=== PATIENT | male | born 1955 | race Caucasian/White ===

== ENCOUNTER 2020-12-27 23:15 | Emergency (ER) | payer OTHER, SELFPAY ==
[2020-12-27 23:18] VITALS: BP 148/89; PULSE 82; RESP 18; TEMP 36.6; O2SAT 97; BMI 28.0
--- NOTE | 2020-12-27 23:51 | ED.SKABFB ---
HPI - Skin/Abscess/Foreign Bdy General Chief complaint: Skin/Abscess/Foreign Body Stated complaint: ?Tick bite Time Seen by Provider: 12/27/20 23:38 Source: patient Mode of arrival: ambulatory Limitations: no limitations History of Present Illness HPI narrative: Patient at [place] noticed a tick on his left thigh likely stayed there for less than 24 hours with slight swelling patient removed the tick which was not engorged. Patient still wants to be treated for prophylactically for Lyme disease. No rash no systemic complaints Related Data Allergies Allergy/AdvReac Type Severity Reaction Status Date / Time prednisone AdvReac Agitated Verified 12/27/20 23:35 Review of Systems Review of Systems: Yes all other systems are reviewed and are negative [facility] Social History Social History Advance Directives: No Physical Exam Vital Signs: Vital Signs: Last Vital Signs Temp 98 F 12/27/20 23:18 Pulse 82 12/27/20 23:18 Resp 18 12/27/20 23:18 BP 148/89 H 12/27/20 23:18 Pulse Ox 97 12/27/20 23:18 Body Mass Index 28.0 Const: General: comfortable and no acute distress Extrem: Upper/lower leg/hip images: 1. Site of tick bite with slight erythema no bull's eye sign MDM - Skin/Abscess/Foreign Bdy MDM Narrative Medical decision making narrative: Patient was given 200 mg of doxycycline prophylactically or Lyme disease per patient's request Discharge Plan Discharge Clinical Impression: Tick bite Qualifiers: Encounter type: initial encounter Site of tick bite: thigh Laterality: left Qualified Code(s): S70.362A - Insect bite (nonvenomous), left thigh, initial encounter Patient Disposition: Home, Self-Care Instructions: Tick Bite (ED) Additional Instructions: Care as advised Follow with PCP if you notice any rash/joint pain
== END 2020-12-28 00:08 | disposition home or self-care (01) ==
PROVIDERS: Emergency Provider Internal Medicine; PCP Internal Medicine
DX: S70.362A Insect bite (nonvenomous), left thigh, initial encounter (principal); W57.XXXA Bitten or stung by nonvenomous insect and other nonvenomous arthropods, initial encounter; Y93.9 Activity, unspecified; Y92.9 Unspecified place or not applicable; Y99.9 Unspecified external cause status
CPT/HCPCS: 99283

== ENCOUNTER 2021-05-21 22:19 | Emergency (ER) | payer OTHER, SELFPAY ==
--- NOTE | ~2021-05-21 | CT_ITS ---
EXAMINATION: CT HEAD WITHOUT CONTRAST CT FACIAL BONES WITHOUT CONTRAST CT CERVICAL SPINE WITHOUT CONTRAST CLINICAL INFORMATION: Fall. Right-sided facial injury. Headache. Hemorrhage. Right orbital and facial trauma. Cervical fracture. COMPARISON: None available. TECHNIQUE: Imaging was performed from the skull base to vertex without intravenous administration of contrast. In addition, helical noncontrast CT imaging was acquired through the cervical spine and facial bones and source images were reviewed along with axial reconstructions and sagittal and coronal MPRs. This CT examination was performed using dose optimization techniques as appropriate, variously including the following: *Automated exposure control. *Adjustment of mA and/or kV according to patient size (this includes techniques or standardized protocols for targeted exams where dose is matched to indication/reason for exam; i.e. extremities or head). *Use of iterative reconstruction technique. DLP: 1915 mGy-cm FINDINGS: Head: There is no evidence of acute intracranial hemorrhage or edematous territorial infarction. A few foci of hypoattenuation in the periventricular and deep white matter are consistent with mild microangiopathy. Field-white matter differentiation is preserved. The ventricles are normal in size and configuration. No evidence for obstructive hydrocephalus. No abnormal mass effect or midline shift. No extra-axial fluid collections. Calcific atherosclerotic disease of the intracranial internal carotid and vertebral arteries. No hyperdense vessel sign. Moderate soft tissue hematoma along the right aspect of the frontal bone, measuring up to 1 cm in depth. No associated osseous abnormalities. The mastoid air cells and middle ear cavities are clear. Maxillofacial Bones: No evidence of maxillofacial bone fractures. The zygomatic arches remain intact. Minimal deformity of the left nasal bone without overt displacement. Mild leftward nasal septal deviation. No evidence of mandibular or maxillary fracture. The mandibular condyles remain well-seated in their respective temporal articular grooves. Moderate right periorbital edema/hematoma. Normal appearance of the intraconal and extraconal fat. Bilateral lens extractions. No evidence of traumatic injury to the extraocular musculature or globes. Mild mucosal thickening of the paranasal sinuses. Mucous retention cyst within the right maxillary sinus. No layering fluid collections. Periapical lucency associated with the mandibular right 1st molar. Cervical Spine: The atlantooccipital and atlantoaxial articulations remain well aligned. Straightening of the normal cervical lordosis. Otherwise, there is anatomic alignment of the vertebral bodies and posterior elements. No evidence of acute fracture or subluxation. The vertebral body heights are maintained. Advanced degenerative disc disease at C5-C6. Moderate degenerative disc disease at C3-C4, C4-C5, C6-C7, and C7-T1. Associated disc-osteophyte complex formation. Facet and uncovertebral joint arthropathy leads to osseous encroachment on the neural foramina from C3-T3. There is no prevertebral soft tissue swelling. The thyroid gland and remaining cervical soft tissues are normal in appearance. Left pectoral pacemaker. Linear scarring/atelectasis in the right lung apex. CT/CT cervical spine wo con IMPRESSION: 1. No evidence of acute intracranial hemorrhage or edematous territorial infarction. Mild underlying microangiopathy. 2. No evidence of acute fracture or traumatic subluxation of the cervical spine. Moderate multilevel degenerative spondyloarthropathy of the cervical spine. 3. No acute fracture of the maxillofacial bones. 4. Moderate right frontal scalp/periorbital hematoma. No associated osseous abnormalities.
[2021-05-21 22:22] VITALS: BP 131/83; PULSE 95; RESP 18; TEMP 36.7; O2SAT 95; BMI 29.2
--- NOTE | 2021-05-21 22:58 | ED_ITS ---
HPI - General Adult General Chief complaint: General Medical Stated complaint: fall Time Seen by Provider: 05/21/21 22:44 Source: patient Mode of arrival: ambulatory Limitations: no limitations History of Present Illness HPI narrative: 66-year-old male who presents emergency department for evaluation of head and fa cial injury secondary to a fall. Patient states that he fell this morning at 01:30 hours. He states he was getting out of his truck, slipped and fell. He states that his clean the wounds at home and bend him up. He is concerned that his right eye in the right side of his face is more swollen than it was after the injury so he came to the emergency department to be seen. The patient states that he did not lose consciousness. He denies headache, nausea or vomiting. He states that his right upper and lower eyelids are swollen on her leaking fluid but he has good vision with no pain in his eye. He has not had any double vision. He is complaining of neck pain which he states is a mild to moderate soreness throughout his entire neck, the pain is intermittent it is worse with movement. He does not know when his last tetanus shot was given. MD complaint: Fall with head, neck and facial injuries Onset (ago): hour(s) (Twenty-three) Location: head, face and neck Radiation: non-radiation Severity: moderate Severity scale (1-10): 5 Quality: aching Pain Consistency: constant Relieving factors: none Exacerbating factors: movement Associated symptoms: denies other symptoms Treatments prior to arrival: none Related Data Allergies Allergy/AdvReac Type Severity Reaction Status Date / Time prednisone AdvReac Agitated Verified 05/21/21 22:31 Review of Systems Review of Systems: Yes all other systems are reviewed and are negative [facility] Past Medical History [facility] Narrative: Past medical history: Hypertension, myocardial infarction. Past surgical history CABG x3 July 2020, pacemaker. Social history: He is . He lives with his . He denies tobacco use but he was a former cigarette smoker. He drinks alcohol once a week, he drinks 4-5 years at a time. Denies drug use. Medical History Hypertension Surgical History S/P triple vessel bypass Social History Social History Advance Directives: No Advance Directives Information Provided: Yes Physical Exam ED Vital Signs: Vital Signs - 24 hr 05/21/21 22:22 Temperature 98.1 F Pulse Rate 95 Respiratory Rate 18 Blood Pressure 131/83 Pulse Oximetry 95 BMI result Body Mass Index 29.2 Const General: cooperative and no acute distress Orientation/consciousness: oriented to person and oriented to place Limitations: no limitations HENMT Other: The patient has abrasions to his right forehead with laceration to his eyebrow and to his lower orbit, there is soft tissue swelling of his upper and lower eyelid, there is tenderness with palpation of the lower orbital rim, there is no scalp hematoma noted Ears: external ears normal General nose exam: Normal external nose present Face and sinus: Yes normal facial exam Mouth: Normal oral and palatal mucosa present Throat: Yes posterior oropharynx normal Eyes Other: Abrasions and lacerations as discussed above Pupils: Equal, round and reactive pupils present EOM: EOMs intact bilaterally Neck Other: Tender trapezius muscles bilaterally and cervical spine diffusely Neck: Yes normal visual inspection, Yes no lymphadenopathy, Yes trachea midline and Yes supple Chest Chest palpation & inspection: normal inspection of the chest and normal palpation of entire chest wall Resp Effort & Inspection: normal respiratory effort and able to speak in complete sentences Auscultation: clear to auscultation bilaterally Cardio Rate: regular rate Rhythm: regular rhythm Heart sounds: S1 normal heart sound present, S2 normal heart sound present and no murmurs GI Inspection: Yes normal to inspection Palpation (GI): Soft to palpation, nontender and no guarding Auscultation: normal bowel sounds General: Yes no CVA tenderness Back/Spine/Pelvis Back: no CVA tenderness Skin General skin exam: no rashes or lesions noted Neuro General: oriented to person and oriented to place Cranial nerves: Yes CN's II-XII intact bilaterally and Yes Equal, round and reactive pupils present Cognition (Neuro): normal cognition Motor exam (neuro): 5/5 motor strength present throughout Extrem General: Yes normal to inspection Psych Appearance: grossly normal Speech and movement: Normal speech and movement present Affect: normal affect Attitude: cooperative Thought process: Normal thought process present Thought content: Normal thought content present Course Course Course Narrative: 66-year-old male who had a fall early this morning at 01:30 hours (23 hours prior to evaluation) sustaining lacerations his right eyebrow, right lower orb ital rim and periorbital abrasions. Patient had no loss of consciousness, no headache nausea vomiting since the injury. He is complaining of neck pain. Vital signs were normal. Physical examination is consistent with his facial trauma. Given his age, I did order a CT scan of the head, neck and facial bones . He is Tdap vaccination will be updated as well. The lacerations appear to be contaminated under at least 23 hours old therefore I think the risk of repairing them at this time is too high with lead to serious infection and I did discuss this with the patient. 0022: The patient's CT scan the head, cervical spine and facial bones were unremarkable. The patient will be discharged home. He was advised to apply bacitracin twice a day to the wounds and watch for signs of infection. She is advised to take Tylenol for pain. Discharge Plan Discharge Clinical Impression: Head injury Qualifiers: Encounter type: initial encounter Qualified Code(s): S09.90XA - Unspecified injury of head, initial encounter Facial injury Qualifiers: Encounter type: initial encounter Qualified Code(s): S09.93XA - Unspecified injury of face, initial encounter Acute cervical myofascial strain Qualifiers: Encounter type: initial encounter Qualified Code(s): S16.1XXA - Strain of muscle, fascia and tendon at neck level, initial encounter Fall Qualifiers: Encounter type: initial encounter Qualified Code(s): W19.XXXA - Unspecified fall, initial encounter Abrasion of face Qualifiers: Encounter type: initial encounter Qualified Code(s): S00.81XA - Abrasion of other part of head, initial encounter Patient Disposition: Home, Self-Care Instructions: Head Injury (ED), Abrasion (ED) Additional Instructions: The CT scans of your head, neck and facial bones were negative, there are no broken bones or bleeding in the brain seen by the radiologist. At this time, I do not think that you have an infection of the abrasions to your face. The lacerations appear to be contaminated and are too old to suture at this time. Use bacitracin twice a day for 1 week to the abrasions on your face and nose. Watch for signs of infection which include increased redness, red streaks going away from the wounds, drainage of pus, fever, chills, fatigue or weakness. You received a Tdap (tetanus, diptheria and Pertussin) vaccination intramuscularly, this is good for 5-10 years. Take Tylenol (acetaminophen) 500 mg pills, 2 pills every 4 to 6 hours as needed for pain. Follow-up with your doctor in 2 days. Please return to the emergency department if your symptoms get worse or if you develop any symptoms that are concerning to you.
[2021-05-22] MEDS: Diphth,Pertus(ACell),Tet Adult 0.5 ML SYRINGE IM (00:12)
== END 2021-05-22 00:40 | disposition home or self-care (01) ==
PROVIDERS: Emergency Provider Emergency Medicine Emergency Medical Services
DX: S09.90XA Unspecified injury of head, initial encounter (principal); S09.93XA Unspecified injury of face, initial encounter; S00.81XA Abrasion of other part of head, initial encounter; S01.111A Laceration without foreign body of right eyelid and periocular area, initial encounter; S16.1XXA Strain of muscle, fascia and tendon at neck level, initial encounter; V48.4XXA Person boarding or alighting a car injured in noncollision transport accident, initial encounter; I10 Essential (primary) hypertension; Y93.89 Activity, other specified; Y92.9 Unspecified place or not applicable; Y99.9 Unspecified external cause status
CPT/HCPCS: 70450; 70486; 72125; 90471; 90715; 99283; 99284

== ENCOUNTER 2021-08-27 15:39 | Emergency (ER) | payer OTHER, SELFPAY ==
[2021-08-27 16:09] VITALS: BP 118/57; PULSE 68; RESP 16; TEMP 36.8; O2SAT 96
[2021-08-27 20:33] LABS: MANUAL DIFF FLAG NO
[2021-08-27 20:35] LABS: Basophils Percent Auto 0.6 % (0-2); Eosinophils Absolute Auto 0.1 X10*3/uL (0.0-0.4); Eosinophils Percent Auto 0.9 % (0-4); Hematocrit 43.6 % (42.0-52.0); Imm Gran Abs Auto 0.01 X10*3/uL (0.00-0.03); Imm Gran Pct Auto 0.2 % (0.0-0.4); Lymphocytes Absolute Auto 2.8 X10*3/uL (1.2-4.9); Lymphocytes Percent Auto 42.5 % (20-40); Mean Corpuscular HGB Conc 34.4 g/dl (31.0-36.0); Mean Corpuscular Hemoglobin 33.1 pg (27.0-33.0); Mean Corpuscular Volume 96.2 fL (80.0-98.0); Mean Platelet Volume 9.5 fL (9.4-12.4); Monocytes Absolute Auto 0.8 X10*3/uL (0.1-1.2); Monocytes Percent Auto 11.6 % (2-11); Neutrophils Absolute Auto 2.9 x10*3/uL (2.0-8.3); Neutrophils Percent Auto 44.2 % (45-73); Platelet Count 152 X10*3/uL (160-400); Red Blood Count 4.53 X10*6/uL (4.60-5.80); Red Cell Distribution Width 14.2 % (11.0-16.0); White Blood Count 6.6 X10*3/uL (4.8-10.8)
[2021-08-27 20:44] LABS: Lactic Acid 0.8 mmol/L (0.5-2.0)
[2021-08-27 20:50] LABS: Alanine Aminotransferase 21 U/L (0-40); Albumin Level 4.5 g/dL (3.5-5.0); Alkaline Phosphatase 54 U/L (39-117); Anion Gap 14 (12-20); Aspartate Amino Transferase 30 U/L (5-37); Bilirubin Direct 0.2 mg/dL (0.0-0.5); Bilirubin Total 0.4 mg/dL (0.0-1.0); Blood Urea Nitrogen 20 mg/dL (9-16); Calcium 9.5 mg/dL (8.4-10.2); Carbon Dioxide 26 mmol/L (22-29); Chloride 104 mmol/L (96-108); Creatinine Clr Calc Pharmacy 75.6; Estimated Glomerular Filt Rate 59; Glucose Random 82 mg/dL (60-115); Potassium 4.4 mmol/L (3.3-5.1); Sodium 140 mmol/L (135-145); Total Protein 7.5 g/dL (6.5-8.0)
[2021-08-27 20:57] LABS: Appearance Urine CLEAR; Color Urine YELLOW; Glucose Urine UA NEG (NEG); Leukocyte Esterase Urine NEG (NEG); Nitrite Urine NEG (NEG); UACC Culture Trigger NO; Urine Blood TRACE (NEG); Urine Ketones NEG (NEG); Urine Protein NEG (NEG-TRACE)
--- NOTE | 2021-08-27 21:21 | ED_ITS ---
HPI - General Adult General Chief complaint: General Medical Stated complaint: needs abscess drained Time Seen by Provider: 08/27/21 18:35 Source: patient Mode of arrival: ambulatory Limitations: no limitations History of Present Illness HPI narrative: 66-year-old male presents to the emergency department with an abscess to his buttocks he says has been going on for a week worsening. Patient tells me he thinks he got it after he using new underwear. He reports discomfort at the site. Denies fevers, chills, chest pain, shortness of breath. Denies trauma to the area. He tells me something like this happened about 30 years ago. Up to date on tetanus shot. Related Data Previous Rx's Medication Instructions Recorded cephalexin 500 mg tablet 500 mg PO Q6H 10 days #40 tabs 08/27/21 doxycycline hyclate 100 mg capsule 100 mg PO BID 10 days #20 caps 08/27/21 Allergies Allergy/AdvReac Type Severity Reaction Status Date / Time prednisone AdvReac Agitated Verified 08/27/21 16:08 Review of Systems Review of Systems: Constitutional : No Fever, No Chills, Cardiovascular : No Chest Pain, No SOB Respiratory : No Dyspnea Gastrointestinal : No abdominal pain Musculoskeletal : No Joint Swelling Skin : No rash, positive abscess Neuro : No Weakness, No Numbness Psych : No SI/HI Yes all other systems are reviewed and are negative [facility] Past Medical History Attestation statement: The following information was validated with the patient. Source: old records reviewed and nursing notes reviewed Medical History Hypertension Surgical History S/P triple vessel bypass Social History Social History Advance Directives: No Advance Directives Information Provided: Yes Physical Exam ED Vital Signs: Vital Signs - 24 hr 08/27/21 16:09 Temperature 98.3 F Pulse Rate 68 Respiratory Rate 16 Blood Pressure 118/57 L Pulse Oximetry 96 BMI result Body Mass Index 30.0 Vital signs stable Appearance: Alert.? Oriented X3.? No acute distress.? Head: Normocephalic, atraumatic, no step-offs or deformities Eyes: Pupils equal, round and reactive to light.? ENT: Pharynx normal.? Neck: Normal inspection.? Neck supple.? CVS: Normal heart rate and rhythm.? Pulses normal.? Respiratory: No respiratory distress.? Breath sounds normal.? Abdomen: Soft and nontender.? Skin: Skin warm and dry.? Normal skin color.? Normal skin turgor.?+ small fluctuant area to the left buttocks measuring 2 cm x 2 cm. Overlying erythema and warmth. Extremities: No lower extremity edema.? No calf ttp. 5/5 strength to bilateral upper and lower extremities Neuro: Oriented X 3.? No motor deficit.? No sensory deficit. CN 2-12 intact Course Reevaluation(s) Reevaluation #1: Attempted to do a fine-needle aspiration however little success due to thickness of purulence/serosanguineous fluid within abscess, therefore and a small incision about 1 cm was made, a small amount of purulence and serosanguineous fluid revealed. Patient tolerated procedure well. He reports immediate relief. Patient will be discharged home on doxycycline and Keflex. Advised him to return with new or worsening symptoms. Due to the location of this abscess packing was not applied. Time: 22:13 Procedures Abscess I/D Site: other (Left buttocks) Side (if applicable): left Local Anesthetic: lidocaine 1% Amount of anesthesia used (mL): 5 Technique: needle aspiration and incised with blade Amount of fluid expressed (mL): 5 Sent for culture/gram staining?: No Irrigation: Yes Packing used?: none Medical Decision Making [facility] Narrative Medical decision making narrative: 2129 66-year-old male presents with abscess to left buttocks times a week worsening Physical exam significant for a small 2 cm x 2 cm buttocks to the left buttocks. With overlying erythema and calor. Plan needle aspiration or incision and drainage. Medical Records Medical records reviewed: Yes I reviewed the patient's medical records. Lab Data Lab results reviewed: Yes I reviewed the patient's lab results. Result diagrams: 08/27/21 20:25 08/27/21 20:25 Labs: Lab Results 08/27/21 08/27/21 08/27/21 Range/Units 20:25 20:25 20:25 WBC 6.6 (4.8-10.8) X10*3/uL RBC 4.53 L (4.60-5.80) X10*6/uL Hgb 15.0 (14.0-18.0) g/dl Hct 43.6 (42.0-52.0) % MCV 96.2 (80.0-98.0) fL MCH 33.1 H (27.0-33.0) pg MCHC 34.4 (31.0-36.0) g/dl RDW 14.2 (11.0-16.0) % Plt Count 152 L (160-400) X10*3/uL MPV 9.5 (9.4-12.4) fL Immature Gran % (Auto) 0.2 (0.0-0.4) % Neut % (Auto) 44.2 L (45-73) % Lymph % (Auto) 42.5 H (20-40) % [place] % (Auto) 11.6 H (2-11) % Eos % (Auto) 0.9 (0-4) % Baso % (Auto) 0.6 (0-2) % Lymph # (Auto) 2.8 (1.2-4.9) X10*3/uL [place] # (Auto) 0.8 (0.1-1.2) X10*3/uL Eos # (Auto) 0.1 (0.0-0.4) X10*3/uL Baso # (Auto) 0.0 (0.0-0.2) X10*3/uL Abs Immat Gran (auto) 0.01 (0.00-0.03) X10*3/uL Absolute Neuts (auto) 2.9 (2.0-8.3) x10*3/uL Absolute Nucleated RBC 0.000 (0.0-0.012) X10*3/uL Nucleated RBC % (auto) 0.0 (0.0-0.2) /100WBC Sodium 140 (135-145) mmol/L Potassium 4.4 (3.3-5.1) mmol/L Chloride 104 (96-108) mmol/L Carbon Dioxide 26 (22-29) mmol/L Anion Gap 14 (12-20) BUN 20 H (9-16) mg/dL Creatinine 1.23 (0.5-1.4) mg/dL Estim Creat Clear Calc 75.6 Estimated GFR 59 Random Glucose 82 (60-115) mg/dL Lactic Acid 0.8 (0.5-2.0) mmol/L Calcium 9.5 (8.4-10.2) mg/dL Total Bilirubin 0.4 (0.0-1.0) mg/dL Direct Bilirubin 0.2 (0.0-0.5) mg/dL AST 30 (5-37) U/L ALT 21 (0-40) U/L Alkaline Phosphatase 54 (39-117) U/L Total Protein 7.5 (6.5-8.0) g/dL Albumin 4.5 (3.5-5.0) g/dL Urine Color Urine Appearance Urine pH (5.0-8.0) Ur Specific [place] (1.005-1.025) Urine Protein (NEG-TRACE) MG/DL Urine Glucose (UA) (NEG) MG/DL Urine Ketones (NEG) MG/DL Urine Blood (NEG) Urine Nitrite (NEG) Ur Leukocyte Esterase (NEG) Urine RBC (0) /HPF Urine WBC (0-4) /HPF Ur Squamous Epith Cells /LPF Urine Bacteria /LPF 08/27/21 Range/Units 20:44 WBC (4.8-10.8) X10*3/uL RBC (4.60-5.80) X10*6/uL Hgb (14.0-18.0) g/dl Hct (42.0-52.0) % MCV (80.0-98.0) fL MCH (27.0-33.0) pg MCHC (31.0-36.0) g/dl RDW (11.0-16.0) % Plt Count (160-400) X10*3/uL MPV (9.4-12.4) fL Immature Gran % (Auto) (0.0-0.4) % Neut % (Auto) (45-73) % Lymph % (Auto) (20-40) % [place] % (Auto) (2-11) % Eos % (Auto) (0-4) % Baso % (Auto) (0-2) % Lymph # (Auto) (1.2-4.9) X10*3/uL [place] # (Auto) (0.1-1.2) X10*3/uL Eos # (Auto) (0.0-0.4) X10*3/uL Baso # (Auto) (0.0-0.2) X10*3/uL Abs Immat Gran (auto) (0.00-0.03) X10*3/uL Absolute Neuts (auto) (2.0-8.3) x10*3/uL Absolute Nucleated RBC (0.0-0.012) X10*3/uL Nucleated RBC % (auto) (0.0-0.2) /100WBC Sodium (135-145) mmol/L Potassium (3.3-5.1) mmol/L Chloride (96-108) mmol/L Carbon Dioxide (22-29) mmol/L Anion Gap (12-20) BUN (9-16) mg/dL Creatinine (0.5-1.4) mg/dL Estim Creat Clear Calc Estimated GFR Random Glucose (60-115) mg/dL Lactic Acid (0.5-2.0) mmol/L Calcium (8.4-10.2) mg/dL Total Bilirubin (0.0-1.0) mg/dL Direct Bilirubin (0.0-0.5) mg/dL AST (5-37) U/L ALT (0-40) U/L Alkaline Phosphatase (39-117) U/L Total Protein (6.5-8.0) g/dL Albumin (3.5-5.0) g/dL Urine Color YELLOW Urine Appearance CLEAR Urine pH 6.0 (5.0-8.0) Ur Specific [place] 1.020 (1.005-1.025) Urine Protein NEG (NEG-TRACE) MG/DL Urine Glucose (UA) NEG (NEG) MG/DL Urine Ketones NEG (NEG) MG/DL Urine Blood TRACE (NEG) Urine Nitrite NEG (NEG) Ur Leukocyte Esterase NEG (NEG) Urine RBC 0-2 (0) /HPF Urine WBC 0-2 (0-4) /HPF Ur Squamous Epith Cells TRACE /LPF Urine Bacteria NONE /LPF Critical Care Time Critical Care Time Critical Care Time: No Discharge Plan Discharge Clinical Impression: Abscess Patient Disposition: Home, Self-Care Instructions: Abscess (ED), Abscess Incision and Drainage (DC) Additional Instructions: Take your medications as prescribed. If you were prescribed antibiotics today, it is important that you take your medication to their entirety, do not skip any doses, do not finish them early. Follow-up with your primary care provider this week. Return to the emergency department with new or worsening symptoms. Such as fevers, chills, chest pain, shortness of breath, nausea, vomiting, dizziness, headache, vision changes, lethargy In case of emergency call 911 Your prescriptions were sent to [facility] on [address]. Doxycycline as an antibiotic that was sent to her pharmacy, it can cause skin irritation/reaction if you come in direct contact to sunlight, please use caution. Prescriptions: New doxycycline hyclate 100 mg capsule 100 mg PO BID 10 Days Qty: 20 0RF cephalexin 500 mg tablet 500 mg PO Q6H 10 Days Qty: 40 0RF Referrals: Poly Salter MD [Primary Care Provider] - 2 days Stand Alone Forms: Work/School Release
[2021-08-27 21:39] LABS: RBC Urine 0-2 /HPF (0); Squamous Epithelial Cell Urine TRACE /LPF; WBC Urine 0-2 /HPF (0-4)
[2021-08-27] MEDS: Lidocaine HCl 1 % MPF 5 ML VIAL SUBCUT ×2 (22:24)
== END 2021-08-27 22:30 | disposition home or self-care (01) ==
PROVIDERS: Emergency Provider Emergency Medicine; PCP Internal Medicine
DX: L02.31 Cutaneous abscess of buttock (principal); I10 Essential (primary) hypertension
CPT/HCPCS: 10060; 36415; 80048; 80076; 81001; 83605; 85025; 87040; 99282; 99284